=== PATIENT | female | born 1970 | race American Indian/Alaskan Native ===

== ENCOUNTER 2017-06-13 20:56 | Emergency (ER) | payer BC ==
[2017-06-13 23:58] LABS: Basophils % (Auto) 0.3 % (0.0-1.8); Eosinophils % (Auto) 3.2 % (0.0-4.3); Hematocrit 38.7 % (30.3-42.9); Hemoglobin 12.8 gm/dl (10.1-14.3); Mean Corpuscular HGB Conc 33 % (30-34); Mean Corpuscular Hemoglobin 27 pg (28-32); Mean Corpuscular Volume 82 fl (79-97); Platelet Count 265 K/mm3 (140-440); Red Blood Count 4.73 M/mm3 (3.65-5.03); Red Cell Distribution Width 13.7 % (13.2-15.2); White Blood Count 9.9 K/mm3 (4.5-11.0)
[2017-06-14 00:17] LABS: Alanine Aminotransferase 24 units/L (7-56); Albumin 4.4 g/dL (3.9-5); Albumin/Globulin Ratio 1.5 %; Alkaline Phosphatase 92 units/L (35-129); Anion Gap 18 mmol/L; Blood Urea Nitrogen 12 mg/dL (7-17); Calcium 9.6 mg/dL (8.4-10.2); Carbon Dioxide 25 mmol/L (22-30); Chloride 100.7 mmol/L (98-107); Glucose 103 mg/dL (65-100); Lipase 28 units/L (13-60); Potassium 3.8 mmol/L (3.6-5.0); Sodium 140 mmol/L (137-145); Total Protein 7.3 g/dL (6.3-8.2)
[2017-06-14 02:42] LABS: Bacteria,Urine 2+ /HPF (Negative); Bilirubin,Urine NEG (Negative); Blood,Urine LG (Negative); Ketones,Urine NEG (Negative); Leukocyte Esterase,Urine NEG (Negative); Mucus,Urine FEW /HPF; Nitrite,Urine NEG (Negative); Protein,Urine <15 mg/dL mg/dL (Negative); Urobilinogen,Urine < 2.0 mg/dL (<2.0)
[2017-06-14 02:43] LABS: RBC,Urine > 182.0 /HPF (0.0-6.0)
[2017-06-14] MEDS ORDERED: ZOFRAN IV ONE (09:09)
[2017-06-14] MEDS ORDERED: TORADOL IV ONE (09:09)
[2017-06-14] MEDS ORDERED: NACL 0.9% 1000 ML 1,000 ML IV ONE (09:09)
--- NOTE | 2017-06-14 09:21 | Emergency Department Report ---
ED Abdominal Pain HPI - General Chief Complaint: Abdominal Pain Stated Complaint: L SIDE PAINS & CONSTANT URINATION Time Seen by Provider: 06/14/17 06:48 Source: patient Mode of arrival: Ambulatory Limitations: No Limitations - History of Present Illness Initial Comments: Pt presents to ED with c/o lower left flank and LLQ pain x 4 days. Pain is colicky, sharp and intermittent in nature. Pt has nausea and some dysuria with diarrhea. No fever, no vomiting. Past hx of kidney stones MD Complaint: abdominal pain (LLQ), flank pain (Left) -: days(s) (4) Location: L flank Radiation: LLQ Severity: moderate Severity scale (0 -10): 4 Quality: cramping, stabbing, sharp Consistency: intermittent Improves With: nothing Worsens With: nothing Associated Symptoms: nausea, diarrhea - Related Data Allergies Allergy/AdvReac Type Severity Reaction Status Date / Time No Known Allergies Allergy Verified 06/13/17 23:28 ED Review of Systems ROS: Stated complaint: L SIDE PAINS & CONSTANT URINATION Other details as noted in HPI Comment: All other systems reviewed and negative Constitutional: denies: diaphoresis, fever, malaise, weakness Eyes: denies: vision change ENT: denies: ear pain, throat pain, hearing loss, epistaxis Respiratory: denies: no symptoms reported, cough, shortness of breath Cardiovascular: denies: chest pain, palpitations, edema, syncope, paroxysmal nocturnal dyspnea Endocrine: no symptoms reported Gastrointestinal: abdominal pain (LLQ, left flank), nausea, diarrhea. denies: vomiting, constipation, hematemesis Genitourinary: urgency, dysuria, frequency. denies: discharge Musculoskeletal: denies: joint swelling, arthralgia Skin: denies: rash, change in color ED Past Medical Hx - Past Medical History Previous Medical History?: Yes Hx Hypertension: Yes - Surgical History Past Surgical History?: Yes Additional Surgical History: HYST, Tonsils - Social History Smoking Status: Never Smoker Substance Use Type: None ED Physical Exam - General Limitations: No Limitations General appearance: in distress (in mild to moderate distress) - Head Head exam: Present: atraumatic, normocephalic - Eye Eye exam: Present: normal appearance, PERRL, EOMI - ENT ENT exam: Present: normal exam, normal orophraynx, mucous membranes moist - Neck Neck exam: Present: normal inspection, full ROM - Respiratory Respiratory exam: Present: normal lung sounds bilaterally - Cardiovascular Cardiovascular Exam: Present: regular rate, normal heart sounds - GI/Abdominal GI/Abdominal exam: Present: soft, tenderness (LLQ), guarding (LLQ and left flank ), normal bowel sounds - Rectal Rectal exam: Present: deferred - Extremities Exam Extremities exam: Present: normal inspection, full ROM, normal capillary refill - Back Exam Back exam: Present: normal inspection, full ROM, CVA tenderness (L) - Neurological Exam Neurological exam: Present: alert, oriented X3 ED Course Vital Signs 06/13/17 06/13/17 06/14/17 22:11 23:31 07:35 Temperature 97.8 F 97.8 F Pulse Rate 59 L 57 L Respiratory 18 18 Rate Blood Pressure 139/86 Blood Pressure 139/86 [Right] O2 Sat by Pulse 99 99 73 L Oximetry 06/14/17 06/14/17 06/14/17 07:46 08:00 08:20 Temperature Pulse Rate Respiratory 20 Rate Blood Pressure 126/87 126/87 Blood Pressure [Right] O2 Sat by Pulse 100 100 100 Oximetry 06/14/17 06/14/17 06/14/17 08:30 09:00 09:30 Temperature Pulse Rate Respiratory Rate Blood Pressure 131/83 132/86 132/86 Blood Pressure [Right] O2 Sat by Pulse 100 99 100 Oximetry 06/14/17 06/14/17 06/14/17 09:34 11:01 12:00 Temperature Pulse Rate Respiratory 16 Rate Blood Pressure 141/92 129/78 Blood Pressure [Right] O2 Sat by Pulse Oximetry ED Medical Decision Making - Lab Data Result diagrams: 06/13/17 23:32 06/13/17 23:32 Critical Care Time: No Critical care attestation.: If time is entered above; I have spent that time in minutes in the direct care of this critically ill patient, excluding procedure time. ED Disposition Clinical Impression: Left flank pain Disposition: DC-07 LEFT AGAINST MED ADVICE Is pt being admited?: No Does the pt Need Aspirin: No Condition: Stable Instructions: Abdominal Pain (ED) Referrals: MICHELINE BRICEÑO MD [Primary Care Provider] - 3-5 Days Forms: AMA Form
[2017-06-14 10:55] LABS: Amylase 51 units/L (27-131); Lipase 26 units/L (13-60)
[2017-06-14 12:32] VITALS: BP 129/78
== END 2017-06-14 12:31 | disposition left against medical advice (07) ==
LOC: ED 20:56
DX: R11.0 Nausea (principal); R10.32 Left lower quadrant pain; R30.0 Dysuria; I10 Essential (primary) hypertension
CPT/HCPCS: 36415; 80053; 81001; 82150; 83690; 85025; 96361; 96374; 96375; 99283; J1885; J2405; J7030